=== PATIENT | male | born 1985 | race Caucasian/White ===

== ENCOUNTER 2023-12-25 09:57 | Emergency (ER) | payer OTHER, SELFPAY ==
[2023-12-25] VITALS (20 sets, daily range): BP systolic 115–127; BP diastolic 67–75; PULSE 51–81; RESP 12–23; TEMP 37.1; O2SAT 95–99; BMI 29.7
--- NOTE | 2023-12-25 10:05 | DI.RAD.S_ITS ---
PROCEDURE: XR CHEST 1V INDICATIONS: chest pain TECHNIQUE: One view of the chest was acquired. COMPARISON: None. FINDINGS: Surgical changes and devices: None. Lungs and pleura: Lungs are clear. No pleural effusions or pneumothorax. Mediastinum: Mediastinal contours appear normal. Heart size is normal. Bones and chest wall: No suspicious bony lesions. Overlying soft tissues appear unremarkable. IMPRESSION: No acute cardiopulmonary pathology. Dictated by: Rocky Hay M.D. on 12/25/2023 at 10:58 Approved by: Rocky Hay M.D. on 12/25/2023 at 10:58
--- NOTE | 2023-12-25 10:08 | EKG_ITS ---
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
[2023-12-25] MEDS: ASPIRIN 81 MG CHEW TAB 324 MG PO (10:12)
--- NOTE | 2023-12-25 10:31 | ED.CHESTPAIN ---
HPI - Chest Pain General Chief Complaint: Chest Pain Stated Complaint: chest pressure/tightness Time Seen by Provider: 12/25/23 10:22 Source: patient Mode of arrival: Ambulatory Limitations: no limitations History of Present Illness HPI narrative: Patient is sent here from [facility] for evaluation of chest tightness with dizziness. Patient has history of hyper cholesterolemia, strong family history of fatal MIs in their 40s. Patient states he is felt fatigued in the past couple of weeks. He has never had chest discomfort in the past. Had dizziness with this as well. Currently states minimal discomfort in his chest. No history of blood clots in legs or lungs no history of dissection. Patient has never had a stress test before. Patient not smoke. Related Data Allergies Allergy/AdvReac Type Severity Reaction Status Date / Time No Known Drug Allergies Allergy Verified 12/25/23 10:05 Review of Systems Review of Systems Narrative: GENERAL: negative chills, fatigue, malaise, fever, sweats. HEENT: negative sinus pain, ear pain, sore throat RESPIRATORY: negative dyspnea, cough CARDIOVASCULAR: Positive chest pain, negative palpitations GASTROINTESTINAL: negative nausea, vomiting, abdominal pain : negative dysuria, frequency, hematuria MUSCULOSKELETAL: negative muscle or bony pain SKIN: negative rash, skin lesions NEUROLOGIC: negative weakness, numbness, positive dizzy ROS Unobtainable: All systems reviewed & are unremarkable except as noted in HPI and below Patient History Social History Smoking Status: Unknown if ever smoked Smoking Status: Unknown if ever smoked alcohol intake frequency: holidays/special occasions only Substance Use Type: does not use Exam Narrative Exam Narrative: GENERAL: in no distress, not toxic not dyspneic HEAD: Normocephalic. EYES: Pupils equal round ENT: Mucous membranes moist. NECK: Trachea midline. CARDIOVASCULAR: Regular rate and rhythm, no friction rub no murmur RESPIRATORY: Clear to auscultation. Breath sounds equal bilaterally. No wheezes, rales, or rhonchi. GASTROINTESTINAL: Abdomen soft, non-tender EXTREMITIES: No gross deformities. BACK: No flank tenderness. NEURO: AOx4. SKIN: Warm and dry PSYCH: Not anxious, is cooperative Initial Vital Signs Initial Vital Signs: Vital Signs Temperature 98.7 F 12/25/23 09:58 Pulse Rate 63 12/25/23 09:58 Respiratory Rate 14 12/25/23 09:58 Blood Pressure 124/73 12/25/23 09:58 Pulse Oximetry 98 12/25/23 09:58 Oxygen Delivery Method Room Air 12/25/23 09:58 Course Orders Ordered: Discontinued Medications Aspirin (Aspirin 81 Mg Chew Tab) 324 mg PO NOW ONE Stop: 12/25/23 10:06 Last Admin: 12/25/23 10:12 Dose: 324 mg Documented By: MAURI Sodium Chloride (Normal Saline 0.9%) 1,000 mls @ 1,000 mls/hr IV BOLUS ONE Stop: 12/25/23 13:26 Last Infusion: 12/25/23 14:45 Dose: Infused Documented By: Admin: 12/25/23 12:42 Dose: 1,000 mls/hr Documented By: MAURI Vital Signs Vital signs: Vital Signs - 8 hr 12/25/23 09:58 12/25/23 10:02 12/25/23 10:02 Temperature 98.7 F Pulse Rate 63 63 Respiratory Rate 14 Blood Pressure 124/73 124/73 Pulse Oximetry 98 97 Oxygen Delivery Method Room Air 12/25/23 10:10 12/25/23 10:10 12/25/23 10:30 Temperature Pulse Rate 59 L Respiratory Rate 22 Blood Pressure 123/75 121/72 Pulse Oximetry 98 Oxygen Delivery Method Room Air 12/25/23 10:30 12/25/23 11:00 12/25/23 11:00 Temperature Pulse Rate 60 53 L Respiratory Rate 22 16 Blood Pressure 115/75 Pulse Oximetry 99 98 Oxygen Delivery Method Room Air 12/25/23 11:30 12/25/23 12:00 12/25/23 12:30 Temperature Pulse Rate 55 L 51 L 51 L Respiratory Rate 15 12 16 Blood Pressure Pulse Oximetry 98 99 99 Oxygen Delivery Method Room Air 12/25/23 13:22 12/25/23 13:24 12/25/23 13:24 Temperature Pulse Rate 81 74 Respiratory Rate 20 15 Blood Pressure 120/67 Pulse Oximetry 97 Oxygen Delivery Method 12/25/23 13:25 12/25/23 13:30 12/25/23 14:00 Temperature Pulse Rate 74 66 Respiratory Rate 16 20 Blood Pressure 120/67 Pulse Oximetry 97 95 Oxygen Delivery Method Room Air 12/25/23 14:30 12/25/23 15:00 12/25/23 15:30 Temperature Pulse Rate 62 63 68 Respiratory Rate 16 23 Blood Pressure Pulse Oximetry 97 Oxygen Delivery Method 12/25/23 16:00 12/25/23 16:30 Temperature Pulse Rate 56 L 60 Respiratory Rate 17 Blood Pressure Pulse Oximetry Oxygen Delivery Method MDM - Chest Pain Lab Data 12/25/23 10:30 12/25/23 14:40 Labs: Lab Results 12/25/23 12/25/23 12/25/23 Range/Units 10:16 10:30 12:35 WBC 5.9 (4.5-11.0) X10^3/uL RBC 4.90 (4.5-5.9) X10^6/uL Hgb 14.3 (13.5-17.5) g/dL Hct 42.0 (41-53) % MCV 85.7 (80-100) fL MCH 29.1 (26-34) PG MCHC 34.0 (30-36) % RDW 13.4 (11.6-14.8) % Plt Count 312 (150-400) X10^3/uL Neut % (Auto) 56.3 (50-75) % Lymph % (Auto) 23.4 L (25-40) % Boyd % (Auto) 11.3 (3-14) % Eos % (Auto) 7.5 H (2-4) % Baso % (Auto) 1.5 (0-2) % Neut # (Auto) 3300 (2728-0918) /uL Lymph # (Auto) 1400 (9153-4935) /uL Boyd # (Auto) 700 (0-900) /uL Eos # (Auto) 400 (0-450) /uL Baso # (Auto) 100 (0-100) /uL PT 11.8 (9.4-12.5) SECONDS INR 1.0 (0.9-1.3) APTT 36 (25.1-36.5) SECONDS D-Dimer < 215 (<500) ng/ml Sodium 137 (137-145) mmol/L Potassium 5.6 H (3.4-5.1) mmol/L Chloride 106 (98-107) mmol/L Carbon Dioxide 20 L (22-32) mmol/L BUN 10 (9-20) mg/dL Creatinine 0.76 (0.66-1.25) mg/dL Estimated GFR > 60 (>60) mL/min BUN/Creatinine Ratio 13.2 (6-22) Glucose 110 H (70-100) mg/dL Calcium 8.9 (8.4-10.2) mg/dL Magnesium 1.8 (1.6-2.3) mg/dL Total Bilirubin 2.2 H (0.2-1.3) mg/dL AST 55 (17-59) IU/L ALT 25 (<50) IU/L Alkaline Phosphatase 26 L (38-126) U/L Total Creatine Kinase 96 61 (55-170) U/L Troponin I 0.020 < 0.012 (0.01-0.034) ng/mL NT-Pro-B Natriuret Pep < 20 (<125) pg/mL Total Protein 8.6 H (6.3-8.2) g/dL Albumin 5.3 H (3.5-5.0) g/dL Globulin 3.3 (1.7-4.1) g/dL Albumin/Globulin Ratio 1.6 (1.0-2.8) Lipase 87 (23-300) U/L Chlamy pneumoniae PCR Not detected (Not Detect) Adenovirus (PCR) Not detected (Not Detect) B. pertussis DNA (PCR) Not detected (Not Detect) B.parapertussis DNA PCR Not detected (Not Detecte) Coronavirus OC43 (PCR) Not detected (Not Detect) Coronavirus HKU1 (PCR) Not detected (Not Detect) Coronavirus 229E (PCR) Not detected (Not Detect) SARS-CoV-2 (PCR) Not detected (Not Detecte) Coronavirus NL63 (PCR) Not detected (Not Detect) Human Metapneumovir PCR Not detected (Not Detect) Influenza Type A (PCR) Not detected (Not Detect) Influenza Type B (PCR) Not detected (Not Detect) M. pneumoniae (PCR) Not detected (Not Detect) Parainfluenza 1 (PCR) Not detected (Not Detect) Parainfluenza 2 (PCR) Not detected (Not Detect) Parainfluenza 3 (PCR) Not detected (Not Detect) Parainfluenza 4 (PCR) Not detected (Not Detect) RSV (PCR) Not detected (Not Detect) Entero/Rhino (PCR) Not detected (Not Detect) 10/25/24 Range/Units 14:40 WBC (4.5-11.0) X10^3/uL RBC (4.5-5.9) X10^6/uL Hgb (13.5-17.5) g/dL Hct (41-53) % MCV (80-100) fL MCH (26-34) PG MCHC (30-36) % RDW (11.6-14.8) % Plt Count (150-400) X10^3/uL Neut % (Auto) (50-75) % Lymph % (Auto) (25-40) % Boyd % (Auto) (3-14) % Eos % (Auto) (2-4) % Baso % (Auto) (0-2) % Neut # (Auto) (5755-4490) /uL Lymph # (Auto) (2518-2634) /uL Boyd # (Auto) (0-900) /uL Eos # (Auto) (0-450) /uL Baso # (Auto) (0-100) /uL PT (9.4-12.5) SECONDS INR (0.9-1.3) APTT (25.1-36.5) SECONDS D-Dimer (<500) ng/ml Sodium 139 (137-145) mmol/L Potassium 3.9 D (3.4-5.1) mmol/L Chloride 108 H (98-107) mmol/L Carbon Dioxide 23 (22-32) mmol/L BUN 9 (9-20) mg/dL Creatinine 0.83 (0.66-1.25) mg/dL Estimated GFR > 60 (>60) mL/min BUN/Creatinine Ratio 10.8 (6-22) Glucose 89 (70-100) mg/dL Calcium 8.7 (8.4-10.2) mg/dL Magnesium (1.6-2.3) mg/dL Total Bilirubin (0.2-1.3) mg/dL AST (17-59) IU/L ALT (<50) IU/L Alkaline Phosphatase (38-126) U/L Total Creatine Kinase (55-170) U/L Troponin I (0.01-0.034) ng/mL NT-Pro-B Natriuret Pep (<125) pg/mL Total Protein (6.3-8.2) g/dL Albumin (3.5-5.0) g/dL Globulin (1.7-4.1) g/dL Albumin/Globulin Ratio (1.0-2.8) Lipase (23-300) U/L Chlamy pneumoniae PCR (Not Detect) Adenovirus (PCR) (Not Detect) B. pertussis DNA (PCR) (Not Detect) B.parapertussis DNA PCR (Not Detecte) Coronavirus OC43 (PCR) (Not Detect) Coronavirus HKU1 (PCR) (Not Detect) Coronavirus 229E (PCR) (Not Detect) SARS-CoV-2 (PCR) (Not Detecte) Coronavirus NL63 (PCR) (Not Detect) Human Metapneumovir PCR (Not Detect) Influenza Type A (PCR) (Not Detect) Influenza Type B (PCR) (Not Detect) M. pneumoniae (PCR) (Not Detect) Parainfluenza 1 (PCR) (Not Detect) Parainfluenza 2 (PCR) (Not Detect) Parainfluenza 3 (PCR) (Not Detect) Parainfluenza 4 (PCR) (Not Detect) RSV (PCR) (Not Detect) Entero/Rhino (PCR) (Not Detect) Imaging Data Chest x-ray: Radiologist's Impression: [place] [address] XRay Report Signed Patient: Surinder Esteban MR#: [id number] : 1985 Acct:[id number] Age/Sex: 38 / M Date of Service: 12/25/23 Loc: ED Accession Number: [id number] Procedure: XR chest 1V Ordering Provider: David Powell MD PROCEDURE: XR CHEST 1V INDICATIONS: chest pain TECHNIQUE: One view of the chest was acquired. COMPARISON: None. FINDINGS: Surgical changes and devices: None. Lungs and pleura: Lungs are clear. No pleural effusions or pneumothorax. Mediastinum: Mediastinal contours appear normal. Heart size is normal. Bones and chest wall: No suspicious bony lesions. Overlying soft tissues appear unremarkable. IMPRESSION: No acute cardiopulmonary pathology. Dictated by: Rocky Hay M.D. on 12/25/2023 at 10:58 Stress test: Radiologist's Impression: [place] [address] Nuclear Medicine Report Signed Patient: Surinder Esteban MR#: [id number] : 1985 Acct:[id number] Age/Sex: 38 / M Date of Service: 12/25/23 Loc: ED Accession Number: [id number] Procedure: Exercise treadmill NON NUC Ordering Provider: David Powell MD PROCEDURE:NM EXERCISE TREADMILL NON NUC COMPARISON:None. INDICATIONS:chest pain FINDINGS:Patient exercised per the standard Hemal protocol. Total time was 9 minutes 31 seconds. Test was terminated secondary to fatigue. Maximal heart rate obtained was 134 bpm which is 74% of max predicted heart rate. Maximum blood pressure was 143/[place] [address]. ROBBY +23%. 10.1 METS. No ischemic changes noted. No arrhythmias noted. Chest pains were noted throughout the stress test even before initiation of the stress phase and persisted into recovery. The intensity of the chest pains was worsened with deep breathing. Blunted heart rate with normal blood pressure response to exercise. IMPRESSION: 1. Nondiagnostic exercise treadmill stress test in terms of ischemia due to inability to reach target heart rate but no obvious ischemic changes noted. 2. Possible chronotropic incompetency present. Dictated by: Eric Hay M.D. on 12/25/2023 at 16:43 Approved by: Eric Hay M.D. on 12/25/2023 at 16:[address] [facility] Narrative Medical decision making narrative: Patient is sent here from [facility] for evaluation of chest tightness with dizziness. Patient has history of hyper cholesterolemia, strong family history of fatal MIs in their 40s. Patient states he is felt fatigued in the past couple of weeks. He has never had chest discomfort in the past. Had dizziness with this as well. Currently states minimal discomfort in his chest. No history of blood clots in legs or lungs no history of dissection. Patient has never had a stress test before. Patient not smoke. After history and exam CBC CMP troponin EKG chest x-ray D-dimer aspirin athletic monitor [facility] Medical records reviewed: No recent visit for this complaint Differential considered: Includes but not limited to STEMI non-STEMI aortic dissection pulmonary embolism pneumonia viral syndrome pericarditis endocarditis Lab Test results independently reviewed as above. Pertinent findings: WBC 5.9 hemoglobin 14.3 INR 1.0 sodium 137 potassium 5.6 BUN 10 creatinine 0.76 glucose 110 troponin 0.02 BNP less than 20, repeat troponin less than 0.012 Independently reviewed EKG sinus bradycardia rate [address] elevation or depression Imaging studies independently reviewed: Chest x-ray no acute finding Consultations: 12:00 p.m.. Spoke with Cardiology, Dr. Hay, reviewed EKG and laboratory studies and is appropriate for non nuclear treadmill stress test and echocardiogram here in the department. 4:30 p.m.. Spoke with Cardiology Dr. Hay, he has read the treadmill stress test and it is normal. 5:[address] Hay, cardiology, he is read the echocardiogram and it is reassuring. Patient can be discharged and follow up with outpatient Cardiology Treatments: Normal saline for potassium levels, aspirin Re-evaluations: 12:05 p.m.. Spoke with patient and . Chest pain-free at this time. He agrees for stress test here. 5:00 p.m.. Updated patient results. 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 He will need follow up with cardiology services on outpatient for re-evaluation. Return precautions reviewed. Chest pain-free. Work note provided. He desires discharge home Discussion: Appropriate for discharge home exam is reassuring. Patient has had echocardiogram and stress test here. Cardiology service has been involved. Chest pain-free at time of discharge. He does have primary care for follow up. Referral for Cardiology has been provided. Diagnosis: Atypical chest pain Discharge Plan Departure Patient Disposition: Home Clinical Impression: Chest pain Qualifiers: Chest pain type: unspecified Qualified Code(s): R07.9 - Chest pain, unspecified Instructions: DI for Chest Pain Activity Restrictions/Additional Instructions: Return if worse if any questions or concerns. Your stress test and ultrasound of the heart are reassuring today. You will need to follow up your family doctor for referral for cardiology services for re-evaluation. You may call provided cardiology office with Dr. Hay if approved by your primary care. Return if worse if any questions or concerns. Referrals: Eric Hay MD [Physician] - Stand Alone Forms: Patient Portal/API, Work Release Note
[2023-12-25 10:40] LABS: Add Manual Diff / Slide Review NO; Basophils Absolute Auto 100 /uL (0-100); Basophils Percent Auto 1.5 % (0-2); Eosinophils Absolute Auto 400 /uL (0-450); Eosinophils Percent Auto 7.5 % (2-4); Hemoglobin 14.3 g/dL (13.5-17.5); Lymphocytes Absolute Auto 1400 /uL (1100-4500); Lymphocytes Percent Auto 23.4 % (25-40); Mean Corpuscular Hemoglobin 29.1 PG (26-34); Mean Corpuscular Volume 85.7 fL (80-100); Monocytes Absolute Auto 700 /uL (0-900); Monocytes Percent Auto 11.3 % (3-14); Neutrophils Absolute Auto 3300 /uL (1500-7000); Neutrophils Percent Auto 56.3 % (50-75); Platelet Count 312 X10^3/uL (150-400); Red Cell Distribution Width 13.4 % (11.6-14.8); White Blood Cell Count 5.9 X10^3/uL (4.5-11.0)
[2023-12-25 10:47] LABS: Prothrombin Time 11.8 SECONDS (9.4-12.5)
[2023-12-25 10:49] LABS: PTT Partial Thromboplastin Tim 36 SECONDS (25.1-36.5)
[2023-12-25 10:52] LABS: Alanine Aminotransferase 25 IU/L (<50); Albumin 5.3 g/dL (3.5-5.0); Albumin Globulin Ratio 1.6 (1.0-2.8); Alkaline Phosphatase 26 U/L (38-126); Aspartate Aminotransferase 55 IU/L (17-59); BUN Creatinine Ratio 13.2 (6-22); Bilirubin Total 2.2 mg/dL (0.2-1.3); Blood Urea Nitrogen 10 mg/dL (9-20); Calcium 8.9 mg/dL (8.4-10.2); Carbon Dioxide 20 mmol/L (22-32); Chloride 106 mmol/L (98-107); Creatine Kinase 96 U/L (55-170); Estimated Glomerular Filt Rate > 60 mL/min (>60); Globulin 3.3 g/dL (1.7-4.1); Glucose 110 mg/dL (70-100); HEMOLYSIS 307 (0-50); Lipase 87 U/L (23-300); Magnesium 1.8 mg/dL (1.6-2.3); Potassium 5.6 mmol/L (3.4-5.1); Sodium 137 mmol/L (137-145); Total Protein 8.6 g/dL (6.3-8.2)
--- NOTE | 2023-12-25 10:57 | PC.NURSE ---
Pt states always deals with nausea due to migraines. Denies needing medication for nausea. Pt requesting PO fluids.
[2023-12-25 11:01] LABS: D Dimer < 215 ng/ml (<500)
[2023-12-25 11:03] LABS: NT-proBNP (BNP-Adult 18+) < 20 pg/mL (<125)
[2023-12-25 11:26] LABS: Adenovirus Not Detected (Not Detect); B. parapertussis Not Detected (Not Detecte); Bordetella pertussis Not Detected (Not Detect); Chlamydophila pneumoniae Not Detected (Not Detect); Coronavirus 229E Not Detected (Not Detect); Coronavirus HKU1 Not Detected (Not Detect); Coronavirus NL 63 Not Detected (Not Detect); Coronavirus OC43 Not Detected (Not Detect); Human Metapneumovirus Not Detected (Not Detect); Human Rhinovirus/Enterovirus Not Detected (Not Detect); Influenza A Not Detected (Not Detect); Influenza B Not Detected (Not Detect); Mycoplasma pneumoniae Not Detected (Not Detect); Parainfluenza Virus 1 Not Detected (Not Detect); Parainfluenza Virus 2 Not Detected (Not Detect); Parainfluenza Virus 3 Not Detected (Not Detect); Parainfluenza Virus 4 Not Detected (Not Detect); Respiratory Syncytial Virus Not Detected (Not Detect); SARS- CoV-2 Not Detected (Not Detecte)
--- NOTE | 2023-12-25 11:44 | DI.ECHO.S_ITS ---
[facility] +---------+ Hospital : : [address] : : [place] : : [id number] : : Phone: [phone] Echocardiogram Report + + :Name: SHAQ MACKEY Study Date: 12/25/2023 Height: 70 in : :[facility] ReadingLocation: Weight: 207 lb : : Gender: Male BSA: 2.1 m2 : :: 1985 Age: 38 yrs BP: 120/67 mmHg: :Reason For Study: CHEST PAIN : :Ordering Physician: HANNAH, : :LIZETH Performed By: Dillon Miller : :Referring: LIZETH YOUNG : + + Interpretation Summary 1. The left ventricular contractility is normal. Estimated ejection fraction is greater than 60% with no segmental wall motion abnormalities. No LVH. Normal diastolic function. 2. Normal right ventricular contractility. 3. Borderline right ventricular enlargement. All other cardiac chambers are of normal size. 4. No significant valvular abnormalities. 5. No obvious intracardiac shunts. 6. No obvious intracardiac masses nor thrombi. 7. No hemodynamically significant pericardial effusion. 8. Low right-sided filling pressures. Conclusion: Normal biventricular function with no significant valvular abnormalities but borderline right ventricular enlargement unclear significance. Procedure: A two-dimensional transthoracic echocardiogram with color flow and Doppler was performed. The study quality was technically good. There is no prior echocardiogram noted for this patient. The patient was in normal sinus rhythm during the exam. Left Ventricle: The left ventricle is normal in size. There is normal left ventricular wall thickness. There is no ventricular septal defect visualized. The ejection fraction is estimated to be 60-65%. There are no focal wall motion abnormalities. Right Ventricle: The right ventricle is mildly dilated. The right ventricular systolic function is normal. Atria: The left atrial size is normal. Right atrial size is normal. There is no Doppler evidence for an interatrial shunt. Mitral Valve: The mitral valve is normal in structure and function. There is no mitral regurgitation noted. Aortic Valve: The aortic valve is trileaflet. The aortic valve opens well. No aortic regurgitation is present. Tricuspid Valve: The tricuspid valve is normal in structure and function. There is trace tricuspid regurgitation. The right ventricular systolic pressure is estimated to be at least 28 mmHg based on an estimated right atrial pressure of 3 mm Hg. Pulmonic Valve: The pulmonic valve is normal in structure and function. There is trace pulmonic regurgitation. Great Vessels: The aortic root is normal size. The dimensions of the ascending aorta are normal. The pulmonary artery is normal size. The IVC is of normal diameter and collapses greater than 50% with a sniff. This suggests a low right atrial pressure of 3 mm Hg. Pericardium/ Pleura There is no pericardial effusion. There is no pleural effusion. MMode/2D Measurements & Calculations LVIDd: 4.9 cm LVOT diam: 2.4 cm LVIDs: 3.1 cm Ao root diam: 3.5 cm FS: 36.4 % asc Aorta Diam: 2.9 cm EPSS: 0.58 cm Ao Arch Diam (Prox Trans): 2.3 cm IVSd: 1.1 cm LVPWd: 0.97 cm LV ly. diameter/BSA (cm/m^2): 2.3 LV sys. diameter/BSA (cm/m^2): 1.5 LA A2 area: 22.9 cm2 RA long axis: 4.3 cm LA A4 area: 22.6 cm2 RA area: 14.4 cm2 LA length (vol): 5.8 cm RA vol: 40.7 ml LA vol: 75.5 ml RA : 19.2 ml/m2 LA vol index: 35.6 ml/m2 IVC diam: 1.8 cm RVD1 (basal): 4.3 cm RVD2 (mid): 3.4 cm TAPSE: 2.5 cm Doppler Measurements & Calculations Ao V2 max: 129.7 cm/sec LVOT Max Julian: 112.1 cm/sec Ao V2 mean: 80.4 cm/sec LV V1 max P.0 mmHg Ao max P.7 mmHg LV V1 VTI: 24.4 cm Ao mean P.2 mmHg FIONA(I,D): 3.6 cm2 Ao V2 VTI: 30.6 cm FIONA(V,D): 3.9 cm2 sev ratio: 0.80 FIONA indexed to BSA (cm^2/m^2): 1.7 MV E max julian: 67.2 cm/sec TR max julian: 250.2 cm/sec MV A max julian: 57.2 cm/sec TR max P.0 mmHg MV E/A: 1.2 PA V2 max: 71.7 cm/sec Med Peak E' Julian: 12.2 cm/sec PA V2 mean: 54.2 cm/sec E/E' med: 5.5 PA mean P.3 mmHg Lat Peak E' Julian: 14.7 cm/sec PA pr(Accel): 5.4 mmHg E/E' lat: 4.6 E/e' average: 5.0 MV dec time: 0.20 sec SV(LVOT): 110.1 ml Reading Physician:
--- NOTE | 2023-12-25 11:56 | DI.NM.S_ITS ---
PROCEDURE: NM EXERCISE TREADMILL NON NUC COMPARISON: None. INDICATIONS: chest pain FINDINGS: Patient exercised per the standard Hemal protocol. Total time was 9 minutes 31 seconds. Test was terminated secondary to fatigue. Maximal heart rate obtained was 134 bpm which is 74% of max predicted heart rate. Maximum blood pressure was 143/[place] [address]. ROBBY +23%. 10.1 METS. No ischemic changes noted. No arrhythmias noted. Chest pains were noted throughout the stress test even before initiation of the stress phase and persisted into recovery. The intensity of the chest pains was worsened with deep breathing. Blunted heart rate with normal blood pressure response to exercise. IMPRESSION: 1. Nondiagnostic exercise treadmill stress test in terms of ischemia due to inability to reach target heart rate but no obvious ischemic changes noted. 2. Possible chronotropic incompetency present. Dictated by: Eric Hay M.D. on 12/25/2023 at 16:43 Approved by: Eric Hay M.D. on 12/25/2023 at 16:46
[2023-12-25] MEDS: SODIUM CHLORIDE 0.9% 1,000 ML 1000 ML IV (12:42)
[2023-12-25 12:51] LABS: Creatine Kinase 61 U/L (55-170)
[2023-12-25 13:04] LABS: Troponin I < 0.012 ng/mL (0.01-0.034)
[2023-12-25 15:13] LABS: BUN Creatinine Ratio 10.8 (6-22); Blood Urea Nitrogen 9 mg/dL (9-20); Calcium 8.7 mg/dL (8.4-10.2); Carbon Dioxide 23 mmol/L (22-32); Chloride 108 mmol/L (98-107); Estimated Glomerular Filt Rate > 60 mL/min (>60); Glucose 89 mg/dL (70-100); HEMOLYSIS < 15 (0-50); Potassium 3.9 mmol/L (3.4-5.1); Sodium 139 mmol/L (137-145)
== END 2023-12-25 17:19 | disposition home or self-care (01) ==
PROVIDERS: Emergency Provider Emergency Medicine
DX: R07.9 Chest pain, unspecified (principal); R42 Dizziness and giddiness; Z11.52 Encounter for screening for COVID-19
CPT/HCPCS: 36415; 71045; 80048; 80053; 82550; 83690; 83735; 83880; 84484; 85025; 85379; 85610; 85730; 87633; 93005; 93017; 93306; 96360; 96361; 99284

== ENCOUNTER → 2024-09-23 13:04 | Outpatient (CLI) | payer OTHER, SELFPAY ==
[2024-09-23 13:50] LABS: Appearance Urine UA CLEAR; Bilirubin Urine UA NEGATIVE (NEGATIVE); Color Urine UA YELLOW; Glucose Urine UA NEGATIVE (Negative); Ketones Urine UA NEGATIVE (NEGATIVE); Leukocyte Esterase Urine UA NEGATIVE (NEGATIVE); Nitrite Urine UA NEGATIVE (Negative); Occult Blood Urine UA 1+ (Negative); Protein Urine UA NEGATIVE (Negative); Specific Gravity Urine UA 1.025 (1.000-1.035); Urobilinogen Urine UA 0.2 E.U./dL (0.2); pH Urine UA 5.5 (4.5-8.0)
[2024-09-23 13:57] LABS: Culture Indicated Urine Cult Not Indicated
[2024-09-23 14:27] LABS: Alanine Aminotransferase 24 IU/L (<50); Albumin 5.1 g/dL (3.5-5.0); Albumin Globulin Ratio 1.7 (1.0-2.8); Alkaline Phosphatase 61 U/L (38-126); Blood Urea Nitrogen 15 mg/dL (9-20); Calcium 9.4 mg/dL (8.4-10.2); Carbon Dioxide 25 mmol/L (22-32); Chloride 102 mmol/L (98-107); Estimated Glomerular Filt Rate > 60 mL/min (>60); Globulin 3.0 g/dL (1.7-4.1); Glucose 108 mg/dL (70-99); HEMOLYSIS < 15 (0-50); Potassium 4.0 mmol/L (3.4-5.1); Sodium 139 mmol/L (137-145); Total Protein 8.1 g/dL (6.3-8.2)
[2024-09-23 14:48] LABS: Vitamin D 25 Hydroxy (D3) 33.6 ng/mL (30.0-100.0)
== END ==
PROVIDERS: Referring Provider Chiropractor; Visit Provider Chiropractor
DX: E55.9 Vitamin D deficiency, unspecified (principal)
CPT/HCPCS: 36415; 80053; 81001; 82306